=== PATIENT | female | born 1960 | race Caucasian/White ===

== ENCOUNTER 2016-11-09 13:55 | Inpatient (IN) | payer MEDICAID ==
[~2016-11-09] VITALS: Ht 165.1 cm; Wt 90.6 kg
[2016-11-09 15:29] LABS: Basophils # (auto) 0.1 uL; Basophils % (auto) 0.7 % (0.0-2.0); Eosinophils # (auto) 0.3 uL; Eosinophils % (auto) 2.8 % (0.0-7.0); Hematocrit 46.3 % (36.0-46.0); Lymphocytes # (auto) 1.3 uL; Mean Corpuscular Hemoglobin 27.6 pg (28.0-32.0); Mean Corpuscular Hgb Conc. 32.5 g/dL (32.0-36.0); Mean Platelet Volume 10.5 fL (7.4-10.4); Monocytes # (auto) 0.8 uL; Monocytes % (auto) 7.8 % (0.0-12.0); Neutrophils # (auto) 7.6 uL; Neutrophils % (auto) 75.7 % (37.0-80.0); Platelet Count (auto) 252 10^3/uL (140-450); Red Cell Distribution Width 14.3 % (11.6-16.0); White Blood Cell 10.1 10^3/uL (4.4-10.8)
[2016-11-09 15:40] LABS: Albumin 2.7 g/dL (3.4-5.0); BUN/Creatinine Ratio 13.9; Calcium 8.7 mg/dL (8.5-10.1); Potassium 4.1 mmol/L (3.5-5.1)
[2016-11-09 15:43] LABS: Bilirubin, Total 0.7 mg/dL (0.2-1.0); Total Protein 7.7 g/dL (6.4-8.2)
[2016-11-09 16:07] LABS: Urine Bilirubin Negative (Negative); Urine Blood Negative /uL (Negative); Urine Color Yellow (Yellow); Urine Ketone Negative (Negative); Urine Mucus FEW (None Seen); Urine Nitrite Negative (Negative); Urine RBC 3 /hpf (0 - 4); Urine Squamous Epithelial Cell FEW /hpf (<5); Urine pH 5.5 (5.0-8.0)
[2016-11-09 16:27] LABS: Urine Glucose 4+ mg/dL (Normal)
[2016-11-09] MEDS ORDERED: cefTRIAXone 1GM/50ML D5W 50 ML IV ONE (17:15)
[2016-11-09] MEDS ORDERED: PROMETHAZINE HCL 25 MG/ML 1ML IV PRN (17:15)
[2016-11-09] MEDS ORDERED: LORazepam 0.5 MG TAB PO PRN (17:15)
[2016-11-09] MEDS ORDERED: DEXTROSE (50%) 50ML SYRG IV PRN (17:15)
[2016-11-09] MEDS ORDERED: MORPHINE SULF INJ 2 MG/ML SYRINGE 1ML IV PRN ×2 (17:15)
[2016-11-09] MEDS ORDERED: NITROGLYCERIN 0.4 MG SL TAB SL PRN (17:15)
[2016-11-09] MEDS ORDERED: HYDROcodone-ACET 5/325MG TAB PO PRN (17:15)
[2016-11-09] MEDS ORDERED: GASTROGRAFIN 30 ML SOL ONE (17:36)
[2016-11-09 17:38] LABS: INR 1.12 (0.9-1.15); Partial Thromboplastin Time 28.1 sec (22.64-33.71); Prothrombin Time 11.5 sec (9.37-12.3)
[2016-11-09] MEDS: SODIUM CHLORIDE 0.9% 1,000 ML IV SCH (17:59)
[2016-11-09] MEDS: InsuLIN REG 1unit/0.01ml Soln (100units/ml) SC SCH ×2 (20:00→22:13)
[2016-11-09] MEDS: ACCU-CHEK COMFORT CURVE STRIP VI SCH (20:00)
[2016-11-09] MEDS ORDERED: IOHEXOL 300 MG/ML 100ML BOTTLE IJ ONE (20:06)
[2016-11-09 21:03] LABS: Partial Thromboplastin Time 28.8 sec (22.64-33.71)
[2016-11-09 21:14] LABS: INR 1.17 (0.9-1.15)
[2016-11-09] MEDS: FAMOTIDINE 20 MG TAB PO SCH (21:33)
[2016-11-09] MEDS: TEMAZEPAM 15 MG CAP PO PRN (21:34)
[2016-11-09 22:00] VITALS: BP 131/68
[2016-11-10] MEDS: SODIUM CHLORIDE 0.9% 1,000 ML IV SCH ×3 (03:04→23:08)
[2016-11-10] MEDS: ACCU-CHEK COMFORT CURVE STRIP VI SCH ×7 (04:00→23:31)
[2016-11-10] MEDS: InsuLIN REG 1unit/0.01ml Soln (100units/ml) SC SCH ×6 (04:00→23:31)
[2016-11-10 05:40] VITALS: BP 129/66
[2016-11-10 07:10] LABS: Basophils # (auto) 0.1 uL; Eosinophils # (auto) 0.4 uL; Eosinophils % (auto) 4.6 % (0.0-7.0); Hemoglobin 13.2 g/dL (12.2-16.2); Lymphocytes # (auto) 1.5 uL; Lymphocytes % (auto) 17.6 % (10.0-50.0); Mean Corpuscular Hemoglobin 27.7 pg (28.0-32.0); Mean Platelet Volume 10.4 fL (7.4-10.4); Monocytes # (auto) 0.7 uL; Monocytes % (auto) 8.1 % (0.0-12.0); Neutrophils % (auto) 68.7 % (37.0-80.0); Platelet Count (auto) 213 10^3/uL (140-450); Red Cell Distribution Width 14.5 % (11.6-16.0); White Blood Cell 8.8 10^3/uL (4.4-10.8)
[2016-11-10 07:18] LABS: Potassium 3.9 mmol/L (3.5-5.1)
[2016-11-10 07:25] LABS: Albumin 2.3 g/dL (3.4-5.0); BUN/Creatinine Ratio 12.5; Calcium 8.1 mg/dL (8.5-10.1)
[2016-11-10 07:28] LABS: Bilirubin, Total 0.7 mg/dL (0.2-1.0); Total Protein 6.6 g/dL (6.4-8.2)
[2016-11-10 08:00] VITALS: BP 152/75
[2016-11-10 09:00] VITALS: BP 152/75
[2016-11-10] MEDS: cefTRIAXone 1GM/50ML D5W 50 ML IV SCH (10:09)
[2016-11-10] MEDS: ACETAMINOPHEN 500 MG TAB PO PRN ×2 (10:10→16:34)
[2016-11-10] MEDS: FAMOTIDINE 20 MG TAB PO SCH ×2 (10:10→21:39)
[2016-11-10] MEDS: ENOXAPARIN SOD 40 MG/0.4 ML SYRINGE SC SCH (10:12)
[2016-11-10 13:00] VITALS: BP 144/72
[2016-11-10 17:00] VITALS: BP 145/72
[2016-11-10] MEDS: ATORVASTATIN 20 MG TAB PO SCH (21:39)
[2016-11-10] MEDS: TEMAZEPAM 15 MG CAP PO PRN (21:42)
[2016-11-10 21:47] VITALS: BP 138/62
[2016-11-11] MEDS: InsuLIN REG 1unit/0.01ml Soln (100units/ml) SC SCH ×5 (04:00→22:28)
[2016-11-11] MEDS: ACCU-CHEK COMFORT CURVE STRIP VI SCH ×5 (04:00→21:45)
[2016-11-11] MEDS: ACETAMINOPHEN 500 MG TAB PO PRN ×2 (04:19→15:41)
[2016-11-11 05:12] VITALS: BP 146/68
[2016-11-11 06:21] LABS: Cholesterol 206 mg/dL (<200); HDL Cholesterol 15 mg/dL (40-59); LDL Cholesterol 161 mg/dL (<100); Triglycerides 184 mg/dL (<150)
[2016-11-11 08:00] VITALS: BP 130/70
[2016-11-11] MEDS: METOPROLOL SUCCINATE XL 50 MG TAB PO SCH (10:26)
[2016-11-11] MEDS: cefTRIAXone 1GM/50ML D5W 50 ML IV SCH (10:26)
[2016-11-11] MEDS: ENOXAPARIN SOD 40 MG/0.4 ML SYRINGE SC SCH (10:26)
[2016-11-11] MEDS: ASPirin-EC 81 mg tab PO SCH (10:27)
[2016-11-11] MEDS: SODIUM CHLORIDE 0.9% 1,000 ML IV SCH ×2 (10:27→19:04)
[2016-11-11] MEDS: FAMOTIDINE 20 MG TAB PO SCH ×2 (10:27→21:45)
[2016-11-11 12:18] VITALS: BP 135/70
[2016-11-11 16:59] VITALS: BP 137/65
[2016-11-11 20:00] VITALS: BP 133/70
[2016-11-11 21:40] VITALS: BP 133/70
[2016-11-11] MEDS: ATORVASTATIN 20 MG TAB PO SCH (21:44)
[2016-11-12] MEDS: ACCU-CHEK COMFORT CURVE STRIP VI SCH ×6 (00:05→21:51)
[2016-11-12] MEDS: SODIUM CHLORIDE 0.9% 1,000 ML IV SCH ×2 (00:07→15:54)
[2016-11-12] MEDS: InsuLIN REG 1unit/0.01ml Soln (100units/ml) SC SCH ×6 (04:00→21:51)
[2016-11-12 04:41] VITALS: BP 150/62
[2016-11-12] MEDS: ACETAMINOPHEN 500 MG TAB PO PRN (05:00)
[2016-11-12 08:00] VITALS: BP 129/55
[2016-11-12] MEDS: cefTRIAXone 1GM/50ML D5W 50 ML IV SCH (08:23)
[2016-11-12 09:00] VITALS: BP 129/55
[2016-11-12] MEDS: ENOXAPARIN SOD 40 MG/0.4 ML SYRINGE SC SCH (09:44)
[2016-11-12] MEDS: METOPROLOL SUCCINATE XL 50 MG TAB PO SCH (09:44)
[2016-11-12] MEDS: ASPirin-EC 81 mg tab PO SCH (09:44)
[2016-11-12] MEDS: FAMOTIDINE 20 MG TAB PO SCH ×2 (09:44→21:51)
[2016-11-12 13:00] VITALS: BP 156/77
[2016-11-12 17:00] VITALS: BP 148/73
[2016-11-12] MEDS: ATORVASTATIN 20 MG TAB PO SCH (21:51)
[2016-11-12 22:00] VITALS: BP 146/73
[2016-11-13] VITALS (7 sets, daily range): BP systolic 129–152; BP diastolic 55–81
[2016-11-13] MEDS: ACCU-CHEK COMFORT CURVE STRIP VI SCH ×3 (00:08→08:08)
[2016-11-13] MEDS: SODIUM CHLORIDE 0.9% 1,000 ML IV SCH ×3 (01:04→21:04)
[2016-11-13] MEDS: InsuLIN REG 1unit/0.01ml Soln (100units/ml) SC SCH ×3 (04:00→08:00)
[2016-11-13] MEDS: ACETAMINOPHEN 500 MG TAB PO PRN (04:40)
[2016-11-13] MEDS: cefTRIAXone 1GM/50ML D5W 50 ML IV SCH (08:07)
[2016-11-13] MEDS: ENOXAPARIN SOD 40 MG/0.4 ML SYRINGE SC SCH (10:00)
[2016-11-13] MEDS: ASPirin-EC 81 mg tab PO SCH (10:00)
[2016-11-13] MEDS: METOPROLOL SUCCINATE XL 50 MG TAB PO SCH (10:02)
[2016-11-13] MEDS: FAMOTIDINE 20 MG TAB PO SCH ×2 (10:02→22:01)
[2016-11-13] MEDS ORDERED: LIDOCAINE 2%HCL (LOCAL ANESTH.) INJ 20ML MDV ONE (11:26)
[2016-11-13] MEDS ORDERED: METOPROLOL TARTRATE 1MG/1ML-5ML VIAL IV ONE (11:29)
[2016-11-13] MEDS ORDERED: NITROGLYCERIN 0.4 MG SL TAB SL ONE (11:29)
[2016-11-13] MEDS ORDERED: MIDAZOLAM HCL 1MG/1ML-2 ML VIAL ONE (11:30)
[2016-11-13] MEDS ORDERED: fentaNYL CITRATE 100 MCG/2 ML VL ONE (11:30)
[2016-11-13] MEDS ORDERED: IOHEXOL 350 MG/ML 100ML IJ ONE (11:33)
[2016-11-13] MEDS ORDERED: GELATIN 1 SPONGE SIZE 50 TOP ONE (12:07)
[2016-11-13] MEDS: ATORVASTATIN 20 MG TAB PO SCH (22:01)
[2016-11-14 05:00] VITALS: BP_SYST 144; BP_SYST 155; BP_DIAS 67; BP_DIAS 74
[2016-11-14] MEDS: SODIUM CHLORIDE 0.9% 1,000 ML IV SCH ×2 (06:52→17:04)
[2016-11-14 09:00] VITALS: BP 149/74
[2016-11-14] MEDS: cefTRIAXone 1GM/50ML D5W 50 ML IV SCH (09:27)
[2016-11-14] MEDS: FAMOTIDINE 20 MG TAB PO SCH ×2 (09:31→21:19)
[2016-11-14] MEDS: ASPirin-EC 81 mg tab PO SCH (09:31)
[2016-11-14] MEDS: METOPROLOL SUCCINATE XL 50 MG TAB PO SCH (09:32)
[2016-11-14] MEDS: ENOXAPARIN SOD 40 MG/0.4 ML SYRINGE SC SCH (10:00)
[2016-11-14 12:59] VITALS: BP 133/66
[2016-11-14 17:04] VITALS: BP 129/60
[2016-11-14 20:00] VITALS: BP 144/74
[2016-11-14] MEDS: ATORVASTATIN 20 MG TAB PO SCH (21:19)
[2016-11-14] MEDS: ACETAMINOPHEN 500 MG TAB PO PRN (21:19)
[2016-11-14 22:00] VITALS: BP 161/70
[2016-11-15] MEDS: ACETAMINOPHEN 500 MG TAB PO PRN ×2 (05:26→21:29)
[2016-11-15] MEDS: SODIUM CHLORIDE 0.9% 1,000 ML IV SCH ×2 (05:30→13:04)
[2016-11-15 05:55] VITALS: BP 152/75
[2016-11-15 09:00] VITALS: BP 141/66
[2016-11-15] MEDS: ASPirin-EC 81 mg tab PO SCH (09:21)
[2016-11-15] MEDS: FAMOTIDINE 20 MG TAB PO SCH ×2 (09:21→21:28)
[2016-11-15] MEDS: cefTRIAXone 1GM/50ML D5W 50 ML IV SCH (09:21)
[2016-11-15] MEDS: ENOXAPARIN SOD 40 MG/0.4 ML SYRINGE SC SCH (09:22)
[2016-11-15] MEDS: METOPROLOL SUCCINATE XL 50 MG TAB PO SCH (09:22)
[2016-11-15 10:56] LABS: Basophils # (auto) 0.1 uL; Eosinophils # (auto) 0.3 uL; Eosinophils % (auto) 4.3 % (0.0-7.0); Hematocrit 37.3 % (36.0-46.0); Hemoglobin 12.5 g/dL (12.2-16.2); Lymphocytes # (auto) 0.7 uL; Mean Corpuscular Hemoglobin 28.1 pg (28.0-32.0); Mean Corpuscular Hgb Conc. 33.6 g/dL (32.0-36.0); Mean Corpuscular Volume 83.6 fL (80.0-100.0); Mean Platelet Volume 9.1 fL (7.4-10.4); Monocytes # (auto) 0.6 uL; Monocytes % (auto) 9.6 % (0.0-12.0); Neutrophils # (auto) 4.9 uL; Neutrophils % (auto) 74.1 % (37.0-80.0); Platelet Count (auto) 197 10^3/uL (140-450); Red Cell Distribution Width 14.7 % (11.6-16.0); White Blood Cell 6.7 10^3/uL (4.4-10.8)
[2016-11-15 11:09] LABS: Partial Thromboplastin Time 30.5 sec (22.64-33.71)
[2016-11-15 11:13] LABS: BUN/Creatinine Ratio 13.2; Potassium 3.2 mmol/L (3.5-5.1)
[2016-11-15 11:22] LABS: INR 1.23 (0.9-1.15); Prothrombin Time 12.7 sec (9.37-12.3)
[2016-11-15 12:07] VITALS: BP 145/72
[2016-11-15] MEDS: ATORVASTATIN 20 MG TAB PO SCH (21:28)
[2016-11-15 22:00] VITALS: BP 145/76
[2016-11-16] MEDS: SODIUM CHLORIDE 0.9% 1,000 ML IV SCH ×3 (01:26→21:05)
[2016-11-16 05:00] VITALS: BP 151/65
[2016-11-16 08:00] VITALS: BP 138/75
[2016-11-16] MEDS ORDERED: IOHEXOL 300 MG/ML 100ML BOTTLE IJ ONE (08:12)
[2016-11-16] MEDS: cefTRIAXone 1GM/50ML D5W 50 ML IV SCH (08:31)
[2016-11-16] MEDS ORDERED: POTASSIUM CHLORIDE 40 MEQ, LIDOCAINE 1% (LOCAL ANESTH.) 4 ML in SODIUM CHL 0.9% 250 ML IV ONE (09:30)
[2016-11-16] MEDS: METOPROLOL SUCCINATE XL 50 MG TAB PO SCH (10:18)
[2016-11-16] MEDS: FAMOTIDINE 20 MG TAB PO SCH ×2 (10:25→21:10)
[2016-11-16 12:00] VITALS: BP 143/71
[2016-11-16] MEDS: ACETAMINOPHEN 500 MG TAB PO PRN (13:19)
[2016-11-16 17:00] VITALS: BP 143/75
[2016-11-16] MEDS: ATORVASTATIN 20 MG TAB PO SCH (21:09)
[2016-11-16 21:58] VITALS: BP 140/74
[2016-11-17 05:00] VITALS: BP 148/75
[2016-11-17] MEDS: SODIUM CHLORIDE 0.9% 1,000 ML IV SCH ×2 (05:24→15:04)
[2016-11-17 08:45] VITALS: BP 145/71
[2016-11-17] MEDS: cefTRIAXone 1GM/50ML D5W 50 ML IV SCH (09:31)
[2016-11-17] MEDS: FAMOTIDINE 20 MG TAB PO SCH (10:29)
[2016-11-17] MEDS: METOPROLOL SUCCINATE XL 50 MG TAB PO SCH (10:29)
[2016-11-17] MEDS: ACETAMINOPHEN 500 MG TAB PO PRN (12:43)
[2016-11-17 13:00] VITALS: BP 134/72
[2016-11-17 13:58] VITALS: BP 145/71
== END 2016-11-17 16:55 | disposition home or self-care (01) | DRG 281 ==
LOC: ER 13:55 → TELE 13:56 → TELE-EAST 18:59 → EAST 11-12 17:16
PROVIDERS: ADMIT Internal Medicine; ATTEND Internal Medicine
PROC: 0FB03ZX Excision of Liver, Percutaneous Approach, Diagnostic (ICD-10-PCS; principal; 2016-11-13)
DX: C22.1 Intrahepatic bile duct carcinoma (principal); C79.9 Secondary malignant neoplasm of unspecified site; E72.51 Non-ketotic hyperglycinemia; N39.0 Urinary tract infection, site not specified; M10.9 Gout, unspecified; K42.9 Umbilical hernia without obstruction or gangrene; I71.4 Abdominal aortic aneurysm, without rupture; Z98.51 Tubal ligation status; Z90.49 Acquired absence of other specified parts of digestive tract; F17.200 Nicotine dependence, unspecified, uncomplicated; N83.209 Unspecified ovarian cyst, unspecified side; D64.9 Anemia, unspecified; E87.6 Hypokalemia; I10 Essential (primary) hypertension; Z80.7 Family history of other malignant neoplasms of lymphoid, hematopoietic and related tissues; Z82.49 Family history of ischemic heart disease and other diseases of the circulatory system; Z82.5 Family history of asthma and other chronic lower respiratory diseases; Z83.3 Family history of diabetes mellitus
CPT/HCPCS: 10022; 36415; 71020; 71260; 74176; 74177; 75574; 76830; 76856; 77012; 80048; 80053; 80061; 81001; 81025; 82105; 82150; 82378; 82962; 83036; 83615; 83690; 84702; 85025; 85610; 85730; 86301; 86304; 86850; 86900; 86901; 87086; 87088; 87186; 93306; 96365; J0696; J1815; J2001; J2250